=== PATIENT | male | born 1985 | race Caucasian/White ===

== ENCOUNTER 2021-06-06 08:25 | Emergency (ER) | payer MEDICARE, MEDICAID, SELFPAY ==
--- NOTE | ~2021-06-06 | XR_ITS ---
EXAMINATION: XR hand RT min 3V EXAM DATE: 06/06/2021 08:51 INDICATION: Initial encounter following injury, with pain of the right hand. TECHNIQUE: Right hand frontal, lateral and oblique projections obtained and reviewed. There is no pr ior study for comparison. FINDINGS: Suspicion of acute closed posttraumatic nondisplaced fracture at the right 5th metacarpal s haft proximally. This finding has been indicated, marked on the examination for review, clinical ollie elation. There is overlying soft tissue swelling. No other suspicious findings. IMPRESSION: Probable nondisplaced right 5th metacarpal shaft fracture. Reviewed, dictated and finalized at location B.
[2021-06-06 08:32] VITALS: BP 126/82; PULSE 94; RESP 20; TEMP 37.2; O2SAT 98
--- NOTE | 2021-06-06 08:39 | ED.UPPEXIN ---
HPI - Extremity Injury (Upper) General Chief Complaint: Extremity Injury, Upper Stated Complaint: right hand injury Time Seen by Provider: 06/06/21 08:55 Source: patient and RN notes reviewed Mode of arrival: ambulatory Limitations: no limitations History of Present Illness HPI narrative: 36-year-old male with history of mild intellectual disability, bipolar presents with concern for right hand injury, bruising, swelling. Reports yesterday he punched a file cabinet causing pain, bruising to the lateral aspect of the hand. Denies decreased sensation, strength. Denies intervention. Patient is left-hand dominant MD complaint: injury to: right and hand Related Data Home Medications Medication Instructions Recorded Confirmed acetaminophen [Mapap 650 mg PO Q4H PRN 06/06/21 06/06/21 (acetaminophen)] alum-mag hydroxide-simeth 30 ml PO Q4H PRN 06/06/21 06/06/21 [Almacone] aripiprazole 5 mg PO DAILY 06/06/21 06/06/21 aripiprazole 20 mg PO HS 06/06/21 06/06/21 bisacodyl 10 mg PO ONCE PRN 06/06/21 06/06/21 bismuth subsalicylate [Bismatrol] 524 mg PO Q1H PRN 06/06/21 06/06/21 bupropion HCl 100 mg PO TID 06/06/21 06/06/21 diphenhydramine HCl 25 mg PO Q6H PRN 06/06/21 06/06/21 divalproex 1,000 mg PO DAILY 06/06/21 06/06/21 docusate sodium 100 mg PO BID 06/06/21 06/06/21 guaifenesin [Robafen] 200 mg PO Q4H PRN 06/06/21 06/06/21 ibuprofen 800 mg PO Q6H PRN 06/06/21 06/06/21 potassium chloride 10 meq PO DAILY 06/06/21 06/06/21 Allergies Allergy/AdvReac Type Severity Reaction Status Date / Time amoxicillin Allergy Mild Rash Verified 06/06/21 08:44 Penicillins Allergy Mild Rash Verified 06/06/21 08:44 strawberry Allergy Mild Rash Verified 06/06/21 08:44 Review of Systems Review of Systems: Narrative: CONSTITUTIONAL: Denies malaise, chills, sweats, or fever. SKIN: Denies lacerations, abrasions MUSCULOSKELETAL: Reports right hand pain, swelling, bruising NEUROLOGIC: Denies numbness, weakness All systems reviewed & are unremarkable except as noted in HPI and below PMFSH Comments At time of signature, agree with nursing past medical, surgical, social and family history. There is no relevant family history pertinent to the presenting complaint Exam Narrative: Exam Narrative: GENERAL: Well-appearing, well-nourished, and in no acute distress. HEAD: Normocephalic EYES: PERRLA, conjunctivae clear NECK: Supple. CHEST: Speaks in full sentences. No respiratory distress. HEART: Regular rate and rhythm. Normal and equal peripheral pulses. EXTREMITIES: Right hand and digits of hand have normal strength and sensation. 5/5 strength with digit flexion, extension. Range of motion normal. No clubbing, cyanosis. Moderate lateral ecchymosis, edema noted. Lateral hand tenderness. Skin intact. Normal digital cascade with flexion of fingers, median, ulnar and radial nerve intact. Normal sensation of each side of finger. Can perform 'okay' sign, 'cross over finger test of index and middle fingers' and 'thumbs up' sign. No scissoring. Normal thumb opposition. Good capillary refill and radial pulse. Distal capillary refill less than 3 seconds. SKIN: Warn, dry, intact, pink. No rash NEURO: Alert and oriented x3. PSYCH: Normal mood and affect Course Course Emergency Course: Patient and caregiver is aware of diagnosis, understands and agrees to treatment plan. Anticipatory guidance given. Patient agrees to follow-up as directed and is aware of reasons to seek care at the emergency department. Portions of this record may have been created with voice recognition software Vital Signs Vital signs: Reviewed. Procedures Orthopedic Splinting/Casting Injury #1: Splinting/Casting Date: 06/06/21 Splinting/Casting Time: 09:21 Side: right Upper Extremity Injury Location: hand Splint: customized in ED OCL: ulnar gutter Pre-Procedure Neuro Vascular Exam: normal Post-Procedure Neuro Vascular Exam: normal Add
== END 2021-06-06 09:30 | disposition home or self-care (01) ==
PROVIDERS: Emergency Provider Nurse Practitioner; PCP Internal Medicine
DX: S62.356A Nondisplaced fracture of shaft of fifth metacarpal bone, right hand, initial encounter for closed fracture (principal); W22.8XXA Striking against or struck by other objects, initial encounter; F70 Mild intellectual disabilities; F31.9 Bipolar disorder, unspecified; K21.9 Gastro-esophageal reflux disease without esophagitis; F41.9 Anxiety disorder, unspecified
CPT/HCPCS: 29125; 73130; 99204; A4565; G0463

== ENCOUNTER 2025-05-31 07:56 | Outpatient (CLI) | payer OTHER, SELFPAY ==
--- NOTE | ~2025-05-31 | MR_ITS ---
EXAMINATION: MR wrist LT wo con DATE: 05/31/2025 09:10 INDICATION: Abnormal left wrist x-ray TECHNIQUE: Magnetic resonance imaging (MRI) of the left wrist was performed without intravenous contr ast. Sequences performed include axial PD-weighted FSE and PD-weighted FS FSE, coronal PD-weighted FS FSE and T1-weighted SE, and sagittal PD-weighted FS FSE and PD-weighted FSE. COMPARISON: None FINDINGS: Bones/other: There is marrow edema at the scaphoid surrounding an ununited mildly comminuted fracture. This includ es a transverse oriented fracture plane beginning radially at the scaphoid waist and extending ulnarl y to the junction of the articular surfaces of the articulations with the distal radius and the lunat e. There is a second sagittally oriented fracture plane at the proximal pole extending to the articul ar surface at the midcarpal joint. There is small spurring T1 signal on both sides of the fracture pl ane along with decreased proximal to distal height of the proximal pole of the scaphoid which suggest s possibly some secondary osteonecrosis versus impaction of the bone. No significant fracture gap or incongruity along the articular surfaces. No other fractures or evident pathologic marrow replacing p rocess. 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 Intrinsic ligaments: Partial tear of the dorsal component and central membranous components of the scapholunate ligament. The volar scapholunate ligament appears grossly intact. The lunotriquetral ligament is normal. Triangular fibrocartilage complex (TFCC): Bladder is a partial thickness tear extending across the distal articular surface of the central fibe r cartilaginous disc of the triangular fibrocartilage complex and extending to its foveal attachment. There is also a partial tear involving the ulnar styloid attachment. The radial attachment as well a s the dorsal and volar radioulnar ligaments are remain intact. The ulnar collateral ligament, ulnotri quetral ligament and meniscal homologue remain intact. The extensor carpi ulnaris tendon sheath is no rmal. Extensor wrist: Mild fusiform thickening and mild increased signal of the extensor carpi ulnaris tendon centered at l evel of the tip of the ulnar styloid process consistent with mild tendinopathy without discrete tear. Remaining extensor tendons of the wrist are otherwise normal. No tenosynovitis. Flexor wrist: The flexor tendons of the wrist are normal. No abnormality in the carpal tunnel with normal median n erve. Guyon's canal: Guyon's canal including the ulnar nerve and artery are normal. IMPRESSION: 1. Ununited mildly comminuted fracture of the scaphoid with decreased T1 signal at either side of the fracture plane and loss of height of the proximal pole which suggests possible secondary osteonecros is versus compaction of the bone. 2. Partial tear of the dorsal and central tremors components of the scapholunate ligament. 3. Tear along the distal articular surface of the central fibrocartilaginous disc of the triangular f ibrocartilage complex with partial tears of its ulnar styloid and foveal attachments. Reviewed, dictated and finalized at location B. IMPRESSION: 1. Ununited mildly comminuted fracture of the scaphoid with decreased T1 signal at either side of the fracture plane and loss of height of the proximal pole w hich suggests possible secondary osteonecrosis versus compaction of the bone. 2. Partial tear of the dorsal and central tremors components of the scapholunat e ligament. 3. Tear along the distal articular surface of the central fibrocartilaginous di sc of the triangular fibrocartilage complex with partial tears of its ulnar sty loid and foveal attachments.
--- OUTSIDE RECORDS SUMMARY | 2025-05-31 08:05 | XMS_ITS | Encounter Summary ---
Author Organization [facility] Address [address] [place] [address] Phone Care Team Providers Care Hide Cooking Operator Name Role Phone Rito Johnson MD Primary Care Provider + Encounter Details Date Type Department Care Team (Late st Contact Info) Description 01/13/2018 Orders Only [facility] ProviderJasbir MD [address] [place] [address] Social History Tobacco Use Types Packs/Day Years Used Date Smoking Tobacco: Every Day Smokeless Tobacco: Never Alcohol Use Standard Drinks/Week Comments No 0 (1 standard drink = 0.6 oz pur e alcohol) Sex and Gender Information Value Date Recorded Sex Assigned at Not on file Legal Sex Male 3:44 AM HUMAN RESOURCES OPERATIONS COORDINATOR Gender Identity Not on file Sexual Orientation Not on file documented as of this encounter Plan of Treatment Not on file documented as of this encounter Procedures Procedure Name Priority Date/Time Associated Diagnosis Comments DISCHARGE LABORATORY CUMULATIVE REPORT 01/13/2018 12:00 AM HUMAN RESOURCES OPERATIONS COORDINATOR documented in this encounter Results * DISCHARGE LABORATORY CUMULATIVE REPORT (01/13/2018 12:00 AM HUMAN RESOURCES OPERATIONS COORDINATOR) Narrative 01/13/2018 12:00 AM HUMAN RESOURCES OPERATIONS COORDINATOR Ordered by an unspecified provider. Historical Provider LAB BLOOD ORDERABLES Chetna l Result documented in this encounter Visit Diagnoses Not on filedocumented in this encounter Additional Health Concerns Infection Onset Date Last Indicated Resolved Time COVID: Suspected 08/26/2021 08/26/2021 08/26/2021 6:23 PM CDT documented as of this encounter Care Teams Hide Cooking Operator Relationship Specialty Start Date End Date Rito Johnson MD PCP - General 07/09/15 documented as of this encounter
--- OUTSIDE RECORDS SUMMARY | 2025-05-31 08:05 | XMS_ITS | Encounter Summary ---
Author Organization [facility] Address [address] [place] [address] Care Team Providers Care Hatchery Helper Name Role Phone Rito Johnson MD Primary Care Provider + Encounter Details Date Type Department Care Team (Late st Contact Info) Description 02/08/2020 Documentation [facility] Case Management [address] [place] [address] Milla Hillman RN Social History Tobacco Use Types Packs/Day Years Used Date Smoking Tobacco: Some Days Smokeless Tobacco: Never Alcohol Use Standard Drinks/Week Comments No 0 (1 standard drink = 0.6 oz pur e alcohol) Sex and Gender Information Value Date Recorded Sex Assigned at Not on file Legal Sex Male 3:44 AM ANESTHESIOLOGIST ASSISTANT Gender Identity Not on file Sexual Orientation Not on file documented as of this encounter Miscellaneous Notes * Plan of Care - Milla Carranza RN - 02/08/2020 10:34 AM CDT CM unable to interview patient as this time, patient in OR. CM to attempt at later time/date. CM tofollow for d/c planning and referrals as needed. If needed, please contact For emergency needs from 4:31pm-7:59am, please call the cloth seconds sorter . For weekend/holiday needs from 8am-430pm, please call the Weekend Community Recreation Coordinator . documented in this encounter Plan of Treatment Not on file documented as of this encounter Visit Diagnoses Not on filedocumented in this encounter Additional Health Concerns Infection Onset Date Last Indicated Resolved Time COVID: Suspected 08/26/2021 08/26/2021 08/26/2021 6:23 PM CDT documented as of this encounter Care Teams Hatchery Helper Relationship Specialty Start Date End Date Rito Johnson MD PCP - General 07/09/15 documented as of this encounter
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
--- OUTSIDE RECORDS SUMMARY | 2025-05-31 08:06 | XMS_ITS | Clinical Summary ---
Author Organization [facility] Address [address], [facility] [address] [place] [address] Phone Care Team Providers Care Hydropulper Operator Name Role Phone Ricardo Dominguez MD Unavailable Unavailabl Siddhartha Turner DPCricket Unavailable [phone] Shu Nava MD Unavailable [phone] Allergies Active Allergy Reactions Criticality Noted Date Comments Amoxicillin Unknown 12/14/2015 Penicillins Unknown [place] Extract Hives Medications acetaminophen (TYLENOL) 325 MG Tablet Take 2 Tabs by mouth every 4 hours as needed. 120 Tab 11 6 Active Additional Information Patient not taking.Reported on 03/25/2024 docusate sodium (COLACE) 100 MG Capsule Take 1 Cap by mouth 2 times daily. 60 Cap 11 7 Active sodium chloride (DEEP SEA NASAL SPRAY) 0.65 % Solution 2 Sprays by Nasal route every 2 hours as needed. 1 Bottle 11 7 Active Additional Information Patient not taking.Reported on 03/25/2024 diphenhydrAMINE (BENADRYL) 25 MG Tablet Take 25 mg by mouth every 6 hours as needed. Active Aripiprazole 20 MG Tablet Take 20 mg by mouth nightly. Active aluminum & magnesium hydroxide-simethi cone (ALMACONE) 200-200-20 MG/5ML Suspension Take 30 mL by mouth every 4 hours as needed for Indigestion. Active bismuth subsalicylate (BISMATROL) 262 MG/15ML Suspension Take 30 mL by mouth. For each loose stool or upset stomach max 8 doses/24hr if symptoms persist >48hrs bijan huber Active divalproex (DEPAKOTE ER) 500 MG TABLET SR 24 HR Take 1,000 mg by mouth daily. 30 Tab 0 Active cloNIDine (CATAPRES) 0.1 MG Tablet Take 0.1 mg by mouth 2 times daily. 1 Active ibuprofen (MOTRIN) 600 MG Tablet Take 600 mg by mouth every 8 hours. Active guaiFENesin (Robafen) 100 MG/5ML Syrup Take 10 mL by mouth every 4 hours as needed. Active lithium 150 MG Capsule Take 150 mg by mouth 2 times daily (with meals). Active triamcinolone (KENALOG) 0.1 % Cream 1 Active lithium (ESKALITH) 450 MG Tablet Controlled Release 1 Active fluticasone (FLONASE) 50 MCG/ACT Suspension 1 Story by Nasal route daily. Use in each nostril as directed. Active DIVALPROEX SODIUM PO Take 500 mg by mouth every evening. Active baclofen (LIORESAL) 20 MG Tablet Take 20 mg by mouth nightly. Active naproxen sodium (ANAPROX) 550 MG Tablet Take 550 mg by mouth 2 times daily as needed. Take with food or milk Active HYDROcodone-aceta minophen (NORCO) 5-325 MG TabletIndications :Arthritis of left foot Take 1 Tablet by mouth every 4 hours as needed for Mild or more severe pain. 30 Tablet 4 Active Active Problems Problem Noted Date Diagnosed Date Suicidal ideation 08/29/2021 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 Combative behavior 08/29/2021 Attention deficit hyperactiv ity disorder (ADHD), predominantly inattentive type Hyperlipidemia Bipolar disorder Anxiety Resolved Problems Problem Noted Date Diagnosed Date Resolved Date Closed 2-part intertrochante heike fracture of proximal end of left femur 02/07/2020 12/20/2020 Overview (07/31/2020): Added automatically from request for surgery [id number] Bimalleolar ankle fracture, left, closed, initial encounter 12/03/2017 12/20/2018 Cellulitis of calf 10/16/2016 9 Hearing loss secondary to cerumen impaction 12/14/2015 12/20/2018 Conductive hearing loss, external ear 12/14/2015 12/20/2018 Immunizations Immunization Administration Dates Next Due Covid-19, Mrna, Lnp-s, PF, 1 00 mcg/0.5 mL Dose (Moderna) 04/02/2021,03/04/2021 Covid-19, Mrna, Lnp-s, Pf, 1 00 Mcg Or 50 Mcg Dose (MODERNA) 10/22/2021 DTAP VACCINE 11/30/2005 Influenza Vaccine greater than 3 yrs 09/02/2018, 11/30/2011 Influenza Vaccine, Quadrivalent, PF 08/31,10/04/2020,09/17/2017,2014 Influenza, Injectable, Mdck,quadrivalent,with Preservative 09/22/2019 Influenza, Injectable, Quadrivalent 09/26/2016 Influenza, Seasonal, Injecta ble, Undefined 09/06/2014 PUR Td PRES FREE 7+ YRS IM 01/10/2016 Pneumococcal Vaccine Adult - 23 Valent 11/30/2006 TDAP Vaccine 11/30/2005 Td Vaccine (preservative free) 01/10/2016 Social History Tobacco Use Types Packs/Day Years Used Date Smoking Tobacco: Every Day Cigarettes 0.1 20 Smokeless Tobacco: Never Tobacco Cessation:Ready to Q uit: Not Asked; Counseling Given: Not Answered Alcohol Use Standard Drinks/Week Comments No 0 (1 standard drink = 0.6 oz pur e alcohol) Sex and Gender Information Value Date Recorded Sex Assigned at Not on file Legal Sex Male 7:48 PM CDT Gender Identity Not on file Sexual Orientation Not on file Last Filed Vital Signs Vital Sign Reading Time Taken Comments Blood Pressure 116/74 2024 10:00 AM CDT Pulse 68 2024 10:00 AM CDT Temperature 36.4 C (97.5 F) 2024 10:00 AM CDT Respiratory Rate 16 2024 10:00 AM CDT Oxygen Saturation 100% 2024 10:00 AM CDT Inhaled Oxygen Concentration - - Weight 87.2 kg (192 lb 3.2 oz) 2024 6:23 A M CDT Height 182.9 cm (6') 2024 6:23 AM CDT Body Mass Index 26.07 2024 6:23 AM CDT Plan of Treatment Health Maintenance Due Date Last Done Comments Hepatitis C Virus (HCV) Screening 1985 Human Papillomavirus (HPV) Immunization (1 - Male 3-dose series) 2001 Hepatitis B Immunization (1 of 3 - 19+ 3-dose series) 2005 Pneumococcal Immunization Combined (2 of 2 - PCV) 11/30/2007 11/30/2006 SARS-COV-2 Immunization ( season) 2024 08/20/2022, 10/22/2021, 04/02/2021, Additional history exists Influenza Immunization (Season Ended) 2025 08/17/2022, 09/19/2021, 10/04/2020, Additional history exists Td Immunization Every 10 Years (Adults With 1 Tdap) 01/10/2026 01/10/2016, 01/10/2016, 11/30/2005 Respiratory Syncytial Virus (RSV) Immunization (Adult) (1 - 1-dose 75+ series) 2061 Meningococcal Immunization (ACWY) Aged Out No longer eligible based on patient's age to complete this topic Rotavirus Immunization Aged Out No lo nger eligible based on patient's age to complete this topic Medical Devices Implanted Type Area Human Relations Teacher Device Identifier Shelf Expiration Date Model / Serial / Lot Allograft Human Tissue Viaflow 1ml Pre-Mixed Injectable Flowable Placental Membrane Matrix - [id number] Implanted:Qty: 1 on 2024 by Alla Bautista DPM at [facility] IMPLANT Left: [employer] 03/19/2026 AMAF-0010 / AMAF-0010 / [id number] Description:LEFT FOOT, INTER PHALANGEAL JOINT HALLUX Easyclip Staple [id number] - [id number] Implanted:Qty: 1 on 2024 by Alla Bautista DPM at [facility] IMPLANT Left: Foot [employer] 05/29/2028 USD78-18- 10 / [id number]- [id number] / [id number] Description:LEFT FOOT, INTER PHALANGEAL JOINT HALLUX Easyclip Staple [id number] - [id number] Implanted:Qty: 1 on 2024 by Alla Bautista DPM at [facility] IMPLANT Left: Foot [employer] 02/28/2028 [id number]- 10 / [id number] / [id number] Description:LEFT FOOT, INTER PHALANGEAL JOINT HALLUX Insurance MEDICARE C HO Care Teams Hydropulper Operator Relationship Specialty Start Date End Date Ricardo Dominguez MD Consulting Physician Orthopaedic Surgery 02/10/18 Siddhartha Shelton DPM [address] [place] [address] Consulting Physician Podiatry 12/20/19 Shu Nava MD [address] [place] [address] [address] [place] [address] Consulting Physician Psychiatry 08/27/20
--- OUTSIDE RECORDS SUMMARY | 2025-05-31 08:06 | XMS_ITS | Clinical Summary ---
Author Organization [facility] Address [address] [facility] [place] [address] Care Team Providers Care Chair Lift Operator Name Role Phone Rito Johnson MD Primary Care Provider [phone] Source Comments [facility],non-owned Affiliates and Associated Physician Practices is amultiple site organization consisting of ambulatory clinics and hospital sitesin [place], [place], [place] and [place]. This disclosure is being madepursuant to the Care Everywhere program and may not contain all information available regarding this patient. Last updated 18.[facility] [employer] Allergies Active Allergy Reactions Criticality Noted Date Comments Penicillins Swelling 07/10/2021 Taft Swelling 07/10/2021 Social History Tobacco Use Types Packs/Day Years Used Date Smoking Tobacco: Never Assessed Sex and Gender Information Value Date Recorded Sex Assigned at Not on file Legal Sex Male 3:27 PM CDT Gender Identity Not on file Sexual Orientation Not on file Last Filed Vital Signs Vital Sign Reading Time Taken Comments Blood Pressure 99/65 07/11/2021 12:30 AM CDT Pulse 82 07/11/2021 12:30 AM CDT Temperature 36.7 C (98.1 F) 07/10/2021 8:46 PM CDT Respiratory Rate 18 07/11/2021 12:30 AM CDT Oxygen Saturation 94% 07/10/2021 11:00 PM CDT Inhaled Oxygen Concentration - - Weight 99.8 kg (220 lb) 07/10/2021 8:48 PM CDT Height 180.3 cm (5' 11) 07/10/2021 8:48 PM CDT Body Mass Index 30.68 07/10/2021 8:48 PM CDT Plan of Treatment Health Maintenance Due Date Last Done Comments HIV SCREENING 2001 HEPATITIS C SCREENING 04/02/2004 DTAP/TDAP/TD VACCINES (1 - Tdap) 2005 HEPATITIS B VACCINE (1 of 3 - 19+ 3-dose series) 2005 COVID-19 VACCINE (1 - 2023- season) 2024 DEPRESSION SCREENING 11/30/2024 MEDICARE AWV CALENDAR YEAR 2024 INFLUENZA VACCINE (Season Ended) 2025 10/04/2020, 10/30/2019, 09/22/2019, Additional history exists ZOSTER VACCINE (1 of 2) 2036 HIB VACCINE Aged Out No longer eligi ble based on patient's age to complete this topic HPV VACCINE Aged Out No longer eligi ble based on patient's age to complete this topic MENINGOCOCCAL (Group B) VACCINE SHARED DECISION-MAKING Aged Out No longer eligible based on patient's age to complete this topic MENINGOCOCCAL GROUPS A/C/Y/W VACCINE Aged Out No longer eligible based on patient's age to complete this topic PNEUMOCOCCAL VACCINE Aged Out No long er eligible based on patient's age to complete this topic Insurance MEDICA[place] - [place] MEDICARE [place] MEDICARE DUAL ADV [place] MEDICARE MEDICAID - OUT OF STATE Care Teams Chair Lift Operator Relationship Specialty Start Date End Date Rito Johnson MD [address] [place] [address] PCP - General Internal Medicine 07/10/21
--- OUTSIDE RECORDS SUMMARY | 2025-05-31 08:06 | XMS_ITS ---
Author Organization [facility] Address [address] [place] [address] Care Team Providers Care Hospice Plan Administrator Name Role Phone Dora Temple Primary Care Provider [phone] Jessica Hernandez [phone] REASON FOR VISIT labs Social History Sex Assigned At : Social History Observation Description Sex Assigned At Male Encounters Encounter Location Date Provider Diagnosis [address] [address] 05/23/2025 Jessica Hernandez Plan Of Treatment No Information Progress Notes * Asa BRUNO JrDOB:[birth year] (40 yo M)Acc No.[id number]:05/23/2025 UNLOCKED PROGRESS NOTE Patient: Asa WHITE Provider: Gianna Hernandez DNP, PMHNP-BC, RETAIL STORE MANAGER :1985 A ge:40 Y S ex:Male Date:05/23/2025 Phone: Address:[address], [address], [place], [id number] Pcp:Dora Temple Subjective: * Chief Complaints: * 1 . Labs. * Medical History: Objective: * Vitals: Assessment: Plan: * Treatment: * * Electronic signature of Karley Hernandez on 05/31/2025 at 08:05 AM CDT Sign off status: Pending * Provider: Gianna Hernandez DNP, PMHNP-BC, RETAIL STORE MANAGER Date: 05/23/2025 Generated for Printing/Faxing/eTransmitting on: 05/31/2025 08:05 AM CDT
--- OUTSIDE RECORDS SUMMARY | 2025-05-31 08:06 | XMS_ITS ---
Author Organization [facility] Address [address] [place] [address] Care Team Providers Care Managed Security Sales Consultant Name Role Phone Dora Temple Primary Care Provider [phone] Allergies Allergen (clinical drug ingredient) Drug/Non Drug Allergy documented on EMR Reaction Allergy Type Onset Date Status amoxicillin amoxicillin (uncoded) Unknown Allergy Active penicillin (uncoded) Unknown Allergy Active strawberry allergenic extract strawberries (uncoded) Unknown Allergy Activ e Pedialyte Unknown Drug Allergy Active REASON FOR VISIT 1 month f/u Medications Medication SIG (Take, Route, Frequency, Duration) Notes Start Date End Date Status Naproxen Sodium 550 mg 1 tablet with rodriguez d or milk orally every 12 hours; Duration: 30 days Active Docusate Sodium 100 mg TAKE 1 CAPSULE BY MOUTH DAILY; Duration: 30 Active Budesonide-Formoterol Fumarate 80-4.5 MCG/ACT as directed Inhalation Not-Taking Losartan Potassium 50 MG 1 tablet Orally Once a day Not-Taking traZODone HCl 50 MG 1 tablet at bedtime as needed Orally Once a day Not-Taking ARIPiprazole 20 MG 1 tablet at bedtime Orally Once a day; Duration: 30 days Active Fluticasone Propionate 50 MCG/ACT 1 spray [...] Twice a day; Duration: 30 days Active Fluticasone Furoate 50 MCG/ACT 1 puff Inhalation Once a day Active Famotidine 20 MG 1 tablet at bedtime as needed Orally Once a day Active Albuterol Sulfate 108 (90 Base) MCG/ACT 1 puff as needed Inhalation every 4 hrs Active Nicotine Polacrilex 4 MG 1 piece chew fo r 30 minutes as needed Mouth/Throat every 8 hrs Active Vitamin D2 50 MCG (1999) 1 tablet Orally Once a day Active Social History Tobacco Use: Social History Observation Description Date Details (start date - stop date) Current Smoker NA - NA Sex Assigned At : Social History Observation Description Sex Assigned At Male Tobacco Control (Standard) Question Answer Notes Tobacco use: Current every day smoker Additional Findings: Tobacco user Light cigarett e smoker (1-9 cigs/day) Vital Signs Blood pressure systolic 100 mm Hg 05/30/20 25 Blood pressure diastolic 78 mm Hg 025 Heart Rate 98 /min 05/30/2025 Respiratory Rate 18 /min 05/30/2025 Height 75 in 05/30/2025 Weight 191.2 lbs 05/30/2025 BMI 23.9 kg/m2 05/30/2025 Oximetry 80 % 05/30/2025 Encounters Encounter Location Date Provider Diagnosis [address] [address] 05/30/2025 Dora Temple Plan Of Treatment No Information Progress Notes * Asa BRUNO JrDOB:[birth year] (40 yo M)Acc No.[id number]:05/30/2025 UNLOCKED PROGRESS NOTE Patient: Asa WHITE Provider: Jerod Temple, MSN, ROUSTABOUT PUSHER, PROCESS CONTROL TECHNICIAN-BC, PROCESS CONTROL TECHNICIAN-C :1985 A ge:40 Y S ex:Male Date:05/30/2025 Phone: Address:[address] [place] [address], [address] Check In:08:49 AM APARTMENT MAINTENANCE Subjective: * Chief Complaints: * 1 . 1 month f/u. * HPI: P reventative Health and Wellness follow-up: .......... C SSRS Interpretation and Follow Up Plan: CSSRS Interpretation and Follow Up Plan C SSRS Screen documented using SF Y es, R isk Disposition from L ow - No Follow Up Plan Required, F ollow Up Plan N o Follow Up Plan required at this time., T imeframe of Screening T sp.? I nterim History: Emergency room visit Y es. W as hospitalized N o.? D epression Screening: PHQ-9 L ittle interest or pleasure in doing things N ot at all, F eeling down, depressed, or hopeless N early every day, T rouble falling or staying asleep, or sleeping too much N early every day, F eeling tired or having little energy Nearly every day, P oor appetite or overeating N ot at all, F eeling bad about yourself or that you are a failure, or have let yourself or your family down S everal days, T rouble concentrating on things, such as reading the newspaper or watching television N ot at all,?Moving or speaking so slowly that other people could have noticed; or the opposite, being so fidgety or restless that you have been moving around a lot more than usual S everal days, T houghts that you would be better off or of hurting yourself in some way N ot at all, T otal Score 1 1, I nterpretation M oderate Depression. I ntervention D epression Screening Findings P ositive, F ollow-Up for Depression R eferred to Behavioral Health.? S creening: [place] Suicide Severity Rating Scale (LF) D o you want to initiate with S creener form, 1 . Wish to be : Have you wished you were or wished you could go to sleep and not wake up? N o, 2 . Suicidal Thoughts: Have you actually had any thoughts of killing yourself? N o, 6 . Suicide Behavior Question: Have you ever done anything,started to do anything, or prepared to end your life? N o, I nterpretation: L ow Risk. * Medical History: B ipolar, Adenomatous colon polyp. * Surgical History: b roken femur repair ( left ) , left ankle , right wrist ligament repair . * Hospitalization/Major Diagno stic Procedure: b urn on arm . * Family History: F ather: alive, unknown. M other: alive, alcohol use. 1 brother(s) , 2 sister(s) - healthy. . * Social History: P rimary Social History: L iving Arrangement L iving Arrangement: P ublic Housing, I s this a supportive environment? Y es. A lcohol Use A lcohol Use Frequency: N ever. I llicit Substance Usage I llicit Substance Usage: Y es, S ubstance Used: Juliana conley I nterested in quitting: N o. E mployment Status E mployment Status: O n Disability. S glendy Question Alcohol Screening H ow may times in the past year have you had (4 for women, or 5 for men) or more drinks in a day? 0 N/A- No current or past drug / alcohol use. T obacco Use: T obacco Control (Standard) T obacco use: C urrent every day smoker, A dditional Findings: Tobacco user L ight cigarette smoker (1-9 cigs/day). M iscellaneous: M ethod of learning P referred method of learning: O ther. * Medications: T aking Fluticasone Furoate 50 MCG/ACT Aerosol Powder Breath Activated 1 puff Inhalation Once a day , Taking Famotidine 20 MG Tablet 1 tablet at bedtime as needed Orally Once a day , Taking Albuterol Sulfate 108 (90 Base) MCG/ACT Aerosol Powder Breath Activated 1 puff as needed Inhalation every 4 hrs , Taking Nicotine Polacrilex 4 MG Gum 1 piece chew for 30 minutes as needed Mouth/Throat every 8 hrs , Taking Vitamin D2 50 MCG (2000 UT) Tablet 1 tablet Orally Once a day , Taking Fluticasone Propionate 50 MCG/ACT Suspension 1 spray in each nostril Once a day , Taking Baclofen 20 MG Tablet 1 tablet at night Orally Once a day , Taking cloNIDine HCl 0.1 MG Tablet 1 tablet at 8:00 am and 1 tablet at 8:00 pm Orally Twice a day , Taking Divalproex Sodium 500 MG Tablet Delayed Release 2 tablets in the AM and 1 tablet at bedtime Orally Twice a day , Taking ARIPiprazole 20 MG Tablet 1 tablet at bedtime Orally Once a day , Taking Naproxen Sodium 550 mg Tablet 1 tablet with food or milk orally every 12 hours , Taking Docusate Sodium 100 mg Capsule TAKE 1 CAPSULE BY MOUTH DAILY , Not-Taking Budesonide-Formoterol Fumarate 80-4.5 MCG/ACT Aerosol as directed Inhalation , Not-Taking Losartan Potassium 50 MG Tablet 1 tablet Orally Once a day , Not-Taking traZODone HCl 50 MG Tablet 1 tablet at bedtime as needed Orally Once a day * Allergies: p enicillin, amoxicillin, strawberries, Pedialyte. Objective: * Vitals: I nitials: ma, Wt:191.2, Ht: 75, BMI:23.9, BP:100/78, HR:98, Oxygen sat %:80, RR:18, Pain scale:3, PHQ9:11. Assessment: Plan: * Treatment: * Recommended Wellness and Pre vention Guidelines: * S tatus A lert L ast Done N ext Due A ction Taken N ONCOMPLIANT C holesterol control (genl pop) 1 0 05/30/2025 - - * Procedure Codes: 3 008F BODY MASS INDEX DOCD, [address] [address]UTRITION, [place], [address] BEHAV CHNG SMOKING 3-10 MIN * Preventive Medicine: Counseling: C are goal follow-up plan: B IN management provided Y es, Poonam lock Normal BMI Follow-up L ifestyle education regarding diet. S MOKING: P atient counselled on the dangers of tobacco use and urged to quit. . . * * Electronic signature of Edgar Temple APRN, [id number] on 05/31/2025 at 08:05 AM CDT Sign off status: Pending * Provider: Jerod Temple, MSN, ROUSTABOUT PUSHER, PROCESS CONTROL TECHNICIAN-BC, PROCESS CONTROL TECHNICIAN-C Date: 05/30/2025 Generated for Printing/Faxing/eTransmitting on: 05/31/2025 08:05 AM CDT History and Physical Notes * HPI (History of Present Illness) Category Sub-Category Detail Notes Category Not es Interim History Was hospitalized No Emergency room visit Yes Depression Screening PHQ-9 Little inte rest or pleasure in doing things: Not at all Feeling down, depressed, or hopeless: Ne markos every day Trouble falling or staying asleep, or sl eeping too much: Nearly every day Feeling tired or having little energy: N early every day Poor appetite or overeating: Not at all Feeling bad about yourself o r that you are a failure, or have let yourself or your family down: Several days Trouble concentrating on thi ngs, such as reading the newspaper or watching television: Not at all Moving or speaking so slowly that other people could have noticed; or the opposite, being so fidgety or restless that you have been moving around a lot more than usual: Several days Thoughts that you would be b checo off or of hurting yourself in some way: Not at all Total Score: 11 Interpretation: Moderate Depression Intervention Depression Screening Findings: P ositive Follow-Up for Depression: Referred to Be havioral Health Screening [place] Suicide Sev erity Rating Scale (LF) Do you want to initiate with: Screener form 1. Wish to be : Have you wished you were or wished you could go to sleep and not wake up?: No 2. Suicidal Thoughts: Have you actually had any thoughts of killing yourself?: No 6. Suicide Behavior Question: Have you ever done anything,started to do anything, or prepared to end your life?: No Interpretation:: Low Risk Preventative Health and Wellness follow-up . . . . . . . . . . CSSRS Interpretation and Follow Up Plan CSSRS Interpretation and Follow Up Plan CSSRS Screen documented using SF: Yes Risk Disposition from SF: Low - No Follo w Up Plan Required Follow Up Plan: No Follow Up Plan requir ed at this time. Timeframe of Screening: Today
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
== END 2025-05-31 07:57 | disposition home or self-care (01) ==
LOC: ANHIMG 08:02
PROVIDERS: PCP Internal Medicine; Visit Provider Internal Medicine
DX: S62.102A Fracture of unspecified carpal bone, left wrist, initial encounter for closed fracture (principal); S63.8X2A Sprain of other part of left wrist and hand, initial encounter; S63.592A Other specified sprain of left wrist, initial encounter; X58.XXXA Exposure to other specified factors, initial encounter
CPT/HCPCS: 73221